=== PATIENT | male | born 1960 | race Caucasian/White ===

== ENCOUNTER 2017-07-23 16:43 | Inpatient (IN) | payer BC ==
[~2017-07-23] VITALS: Ht 177.8 cm; Wt 104.7 kg
[2017-07-23] VITALS (12 sets, daily range): BP systolic 113–152; BP diastolic 85–104; PULSE 90–106; TEMP 36.7; O2SAT 93–96; Ht 177.8 cm; Wt 104.7 kg
[~2017-07-23 16:43] MED LIST: ADVIN25/60 INH; ALBUAER2 INH
[2017-07-23] MEDS ORDERED: SODIUM CHLORIDE 0.9% 1000ML 1,000 ML IV STA (16:48)
[2017-07-23] MEDS ORDERED: NITROGLYCERIN OINT 2% 1GM PACKET EXT ONE (17:00)
[2017-07-23 17:16] LABS: BASO % 0.5 %; BASO ABS # 0.06 K/uL (0-0.2); COMPLETE YES; EOS % 3.5 %; IG% 0.4 %; LYMPH % 25.5 %; LYMPH ABS # 3.38 K/uL (1.2-3.4); MEAN CORPUSCULAR HEMOGLOBIN 29.9 pg (25-34); MEAN CORPUSCULAR HGB CONC 34.4 g/dl (32-36); MEAN PLATELET VOLUME 9.8 fL (7.4-10.4); MONO % 9.7 %; NEUT % 60.4 %; PLATELET COUNT 227 K/uL (130-400); RED BLOOD COUNT 5.52 M/uL (4.7-6.1); WHITE BLOOD COUNT 13.25 K/uL (4.8-10.8)
[2017-07-23 17:22] LABS: INR 1.1 (0.9-1.1); PARTIAL THROMBOPLASTIN RATIO 1.1; PROTHROMBIN TIME (PATIENT) 11.4 SECONDS (9.0-12.0)
[2017-07-23] MEDS ORDERED: PRVHFAIN INH (17:25)
[2017-07-23] MEDS ORDERED: LISI-787 PO (17:25)
[2017-07-23 17:37] LABS: BUN/CREATININE RATIO 13.9 (10-20); CALCIUM 9.8 mg/dl (8.5-10.1); CREATININE 1.57 mg/dl (0.60-1.40)
--- NOTE | 2017-07-23 17:41 | EMERGENCY ROOM VISIT NOTE ---
History Report prepared by Jsoh: Tavia Wen Under the Supervision of: Dr. Hank Franklin D.O. First contact with patient: 16:34 Stated Complaint: CHEST PAIN History of Present Illness The patient is a 56 year old male who presents to the Emergency Room with complaints of constant chest pain for the past two days. About two days ago the patient developed central chest pain and pressure. He was diaphoretic and short of breath, worsening with exertion. His symptoms started to improve over the past 24 hours. This morning he was feeling better but was still tired and SOB with exertion. He also reports some lower abdominal pain. He went to his PCP's office for evaluation of his symptoms today and had an ECG. He was sent to the ED by ambulance for further evaluation. He was given 25 mg of metoprolol at his PCP's office and 324 mg of ASA by EMS. The patient did not receive nitro. He was on 2L of O2 en route. The patient denies any current chest pain. He denies any back pain, urinary symptoms, and constipation. He denies any previous history of abdominal surgeries. He has never had a colonoscopy. He did have a stress test about 1 year ago. Source of History: patient, EMS Onset: 2 days ago Position: chest Timing: constant Modifying Factors (Worsening): exertion Associated Symptoms: + diaphoresis, + SOB, + abdominal pain, + fatigue, No back pain, No urinary symptoms Review of Systems See HPI for pertinent positives & negatives. A total of 10 systems reviewed and were otherwise negative. Past Medical & Surgical Medical Problems: (1) Asthma (2) HTN (hypertension) (3) Hypertension Family History Heart disease Social History Smoking Status: Never Smoker Smokeless Tobacco Use: No Alcohol Use: none Drug Use: none Marital Status: Housing Status: lives with family Occupation Status: employed Current/Historical Medications Scheduled Lisinopril/Hctz (Zestoretic 20MG/12.5MG), 1 TAB PO QAM Scheduled PRN Albuterol (Ventolin Hfa), 2 PUFFS INH UD PRN for Asthma Symptoms Fluticasone Prop/Salmeterol (Advair Diskus 250/50 60 Dose), 1 PUFF INH BID PRN for Asthma Symptoms Allergies Coded Allergies: No Known Allergies (Unverified , 07/23/17) Physical Exam Vital Signs Date Time Temp Pulse Resp B/P (MAP) Pulse Ox O2 Delivery O2 Flow Rate FiO2 07/23/17 18:32 100 18 144/86 (105) 95 Room Air 07/23/17 17:24 104 20 150/115 97 Nasal Cannula 2.0 07/23/17 17:00 106 20 127/93 97 Room Air 07/23/17 16:52 109 07/23/17 16:50 37.0 107 20 178/103 97 Room Air 07/23/17 16:50 97 Room Air Physical Exam GENERAL: Patient is awake, alert, and in no acute distress. Patient is resting comfortably and showing no signs of anxiety EYES: The conjunctivae are clear. The pupils are round and reactive. EARS, NOSE, MOUTH AND THROAT: The nose is without any evidence of any deformity. Mucous membranes are moist tongue is midline NECK: The neck is nontender and supple. RESPIRATORY: Normal respiratory effort is noted there is no evidence of wheezing rhonchi or rales CARDIOVASCULAR: Regular rate and rhythm noted there no murmurs rubs or gallops normal S1 normal S2 GASTROINTESTINAL: The abdomen is mildly distended but soft, no tenderness, guarding, or rigidity. Bowel sounds are present in all quadrants. MUSCULOSKELETAL/EXTREMITIES: There is no evidence of gross deformity full range of motion is noted in the hips and shoulders SKIN: There is no obvious evidence of any rash. There are no petechiae, pallor or cyanosis noted. NEUROLOGIC: Patient is awake alert and oriented x3 Medical Decision & Procedures ER Provider Diagnostic Interpretation: Prehospital ECG per my interpretation shows a sinus tachycardia at 120, no ectopy, ST elevation noted in anterior leads, Q-waves in anterior and inferior leads. Laboratory Results 07/23/17 16:55 Red Blood Count 5.52, Mean Corpuscular Volume 87.0, Mean Corpuscular Hemoglobin 29.9, Mean Corpuscular Hemoglobin Concent 34.4, Mean Platelet Volume 9.8, Neutrophils (%) (Auto) 60.4, Lymphocytes (%) (Auto) 25.5, Monocytes (%) (Auto) 9.7, Eosinophils (%) (Auto) 3.5, Basophils (%) (Auto) 0.5, Neutrophils # (Auto) 8.01, Lymphocytes # (Auto) 3.38, Monocytes # (Auto) 1.28, Eosinophils # (Auto) 0.47, Basophils # (Auto) 0.06 07/23/17 16:55 Test 07/23/17 16:55 07/23/17 17:02 White Blood Count 13.25 K/uL (4.8-10.8) Red Blood Count 5.52 M/uL (4.7-6.1) Hemoglobin 16.5 g/dL (14.0-18.0) Hematocrit 48.0 % (42-52) Mean Corpuscular Volume 87.0 fL (80-100) Mean Corpuscular Hemoglobin 29.9 pg (25-34) Mean Corpuscular Hemoglobin Concent 34.4 g/dl (32-36) Platelet Count 227 K/uL (130-400) Mean Platelet Volume 9.8 fL (7.4-10.4) Neutrophils (%) (Auto) 60.4 % Lymphocytes (%) (Auto) 25.5 % Monocytes (%) (Auto) 9.7 % Eosinophils (%) (Auto) 3.5 % Basophils (%) (Auto) 0.5 % Neutrophils # (Auto) 8.01 K/uL (1.4-6.5) Lymphocytes # (Auto) 3.38 K/uL (1.2-3.4) Monocytes # (Auto) 1.28 K/uL (0.11-0.59) Eosinophils # (Auto) 0.47 K/uL (0-0.5) Basophils # (Auto) 0.06 K/uL (0-0.2) RDW Standard Deviation 43.8 fL (36.4-46.3) RDW Coefficient of Variation 13.7 % (11.5-14.5) Immature Granulocyte % (Auto) 0.4 % Immature Granulocyte # (Auto) 0.05 K/uL (0.00-0.02) Prothrombin Time 11.4 SECONDS (9.0-12.0) Prothromb Time International Ratio 1.1 (0.9-1.1) Activated Partial Thromboplast Time 28.4 SECONDS (21.0-31.0) Partial Thromboplastin Ratio 1.1 Anion Gap 10.0 mmol/L (3-11) Est Creatinine Clear Calc Drug Dose 62.4 ml/min Estimated GFR () 55.5 Estimated GFR (Non- 47.9 BUN/Creatinine Ratio 13.9 (10-20) Calcium Level 9.8 mg/dl (8.5-10.1) Total Bilirubin 1.4 mg/dl (0.2-1) Direct Bilirubin 0.2 mg/dl (0-0.2) Aspartate Amino Transf (AST/SGOT) 47 U/L (15-37) Alanine Aminotransferase (ALT/SGPT) 34 U/L (12-78) Alkaline Phosphatase 91 U/L (45-117) Total Creatine Kinase 240 U/L (39-308) Creatine Kinase MB 7.9 ng/ml (0.5-3.6) Creatine Kinase MB Ratio 3.3 (0-3.0) Troponin I 7.390 ng/ml (0-0.045) Total Protein 7.8 gm/dl (6.4-8.2) Albumin 3.4 gm/dl (3.4-5.0) Lipase 224 U/L (73-393) Bedside Troponin I 8.070 ng/ml (0-0.045) Medications Administered Medications (Trade) Dose Ordered Sig/Vanita Route Start Time Stop Time Status Last Admin Dose Admin Sodium Chloride 1,000 ml @ 999 mls/hr Q1H1M STAT IV 07/23/17 16:48 07/23/17 17:48 DC 07/23/17 16:50 999 MLS/HR Nitroglycerin (Nitroglycerin 2% Oint) 1 inch NOW ONCE EXT 07/23/17 17:00 07/23/17 17:01 DC 07/23/17 16:57 1 INCH Midazolam HCl (Versed Inj) 2 mg STK-MED ONCE .ROUTE 07/23/17 17:43 07/23/17 17:44 DC 07/23/17 17:43 1 MG Fentanyl Citrate (Fentanyl Inj) 100 mcg STK-MED ONCE .ROUTE 07/23/17 17:43 07/23/17 17:44 DC 07/23/17 17:43 50 MCG Heparin Sodium (Porcine) (Heparin Iv Bolus) 10,000 unit STK-MED ONCE .ROUTE 07/23/17 17:43 07/23/17 17:44 DC 07/23/17 17:43 5,000 UNIT ECG Indication: chest pain Rate (beats per minute): 109 Rhythm: sinus tachycardia Findings: Q waves (Anterior and inferior), ST elevation (Anterior), no ectopy Comparison ECG Date: 02/13/2016 Change: Findings are new compared to previous. ED Course 1634: I took medical command prior to the patient's arrival in the department. 1640: I discussed the case with Dr. Mckinley of cardiology prior to the patient's arrival. 1648: NSS 1000 ml @ 999 mls/hr IV 1650: The patient was evaluated in room C8. A complete history and physical examination were performed. 1700: Nitroglycerin 1 inch EXT 1721: I discussed the case with Dr. Mckinley again at this time. He will take the patient to the catheter lab. A code heart alert was called in the ED. 1724: I reassessed the patient at this time. He is resting comfortably. I discussed the results and treatment plan with the patient. I answered all pertaining questions that he had. He expressed understanding and verbalized agreement. 1746: I spoke with Dr. Orozco. We discussed the patients case. [facility]. Medical Decision Differential diagnosis: Etiologies such as cardiac ischemia, aortic dissection, pulmonary embolism, pneumonia, pneumothorax, musculoskeletal, infections, pericarditis, myocarditis , esophageal rupture, gastrointestinal, as well as others were entertained. Nursing notes reviewed. Additional history is obtained from the hospital personnel. The patient is a 56-year-old male who presented to the emergency department for an evaluation of chest discomfort and abnormal EKG. The patient has been having chest discomfort for the last few days. He has no chest discomfort at this time but continues to have some lower abdominal tenderness. His physical exam was not consistent with an acute surgical abdomen. The patient had an abnormal EKG prior to arrival and I received a prehospital medical command call about this patient. He was given aspirin and beta blockers prior to arrival. The patient does not have any chest discomfort but his EKG appear to be consistent with a recent ST segment elevation [place] which is likely in the anterior leads. He was not having pain so I did not make him a heart alert but I did discuss his case with the on-call mining detail draftsperson prior to arrival. When he arrived he still had no pain and his EKG showed some mild improvement. His initial EKG was found to be elevated. For this reason I discussed his case again with the intervention radio antenna installer and he was made a heart alert. The patient had a CT the abdomen and pelvis without contrast to ensure there is no acute abnormality and I did not wish to give him contrast because he would likely need a heart catheterization. The patient was reevaluated multiple times. He was treated with IV fluids and nitroglycerin. He continued to be chest pain-free while in the emergency department. He was taken the cardiac Press Technician. The patient was agreeable this plan. Medication Reconcilliation Current Medication List: was personally reviewed by me Blood Pressure Screening Patient's blood pressure: Elevated blood pressure Consults Time Called: 1640 Consulting Physician: Dr. Mckinley Returned Call: 1640 I discussed the case with Dr. Mckinley of cardiology prior to the patient's arrival. Additional Consults: Time Called: 1718 Consulted Physician: Dr. Mckinley Returned Call: 1721 Additional Comments: I discussed the case with Dr. Mckinley again at this time. He will take the patient to the catheter lab. A code heart alert was called in the ED. Time Called: 1743 Consulted Physician: Dr. Orozco Returned Call: 1746 Additional Comments: I spoke with Dr. Orozco. We discussed the patients case. The patient will be evaluated by the [facility] for further management. Impression Primary Impression: STEMI (ST elevation myocardial infarction) Additional Impressions: Abdominal pain Chest wall pain Critical Care I have personally spent greater than 35 minutes of critical care time in the direct management of this patient. This includes bedside care, interpretation of diagnostic studies, and testing, discussion with consultants, patient, and family members, and other required patient management activities. This 35 minutes is in excess of all separately billable procedures. Scribe Attestation The scribe's documentation has been prepared under my direction and personally reviewed by me in its entirety. I confirm that the note above accurately reflects all work, treatment, procedures, and medical decision making performed by me. Departure Information Dispostion Being Evaluated By Hospitalist Referrals Miah Bush M.D. (PCP) Problem Qualifiers Primary Impression: STEMI (ST elevation myocardial infarction) Involved coronary artery: unspecified coronary artery Qualified Codes: I21.3 - ST elevation (STEMI) myocardial infarction of unspecified site Additional Impressions: Abdominal pain Abdominal location: generalized Qualified Codes: R10.84 - Generalized abdominal pain
[2017-07-23] MEDS ORDERED: HEPARIN SOD (PORCINE) 1000 UNIT/ML 10 ML VIAL ONE (17:43)
[2017-07-23] MEDS ORDERED: MIDAZOLAM HCL 1 MG/ML 2ML VIAL ONE (17:43)
[2017-07-23] MEDS ORDERED: NiCARDipine HCL INJ 2.5 MG/ML 10 ML AMP ONE (17:43)
[2017-07-23] MEDS ORDERED: FENTANYL CITRATE INJ 50 MCG/1 ML 2 ML VIAL ONE (17:43)
[2017-07-23] MEDS ORDERED: NITROGLYCERIN/D5W 100MCG/ML 20ML SYR ONE (17:44)
--- NOTE | 2017-07-23 17:45 | DIAGNOSTIC IMAGING REPORT ---
ABD/PELVIS NO IV OR ORAL CONT CLINICAL HISTORY: 56 years-old Male presenting with pain, lower abdominal discomfort. TECHNIQUE: Multidetector CT of the abdomen and pelvis was performed without the use of intravenous contrast. IV contrast: None. A dose lowering technique was used consistent with the principles of ALARA (as low as reasonably achievable). COMPARISON: None. CT DOSE (mGy.cm): The estimated cumulative dose is 677.97 mGy.cm. FINDINGS: Graduate Assistant Athletic Trainer topogram: Unremarkable. Lung bases: Bronchial wall thickening with peribronchial vascular groundglass opacity and bandlike consolidation at the lung bases. Patchy nodular groundglass opacity also noted at the lung bases. Normal heart size. Trace pericardial effusion. No pleural effusion. Liver: Normal morphology. Normal density. Biliary: No gross biliary ductal dilatation allowing for noncontrast technique. Gallbladder contains gallstones. Pancreas: Normal noncontrast appearance. Spleen: Normal noncontrast appearance. Adrenal glands: Normal noncontrast appearance. Kidneys and ureters: Normal noncontrast appearance. No nephrolithiasis. No hydronephrosis. Normal ureters. Bladder: Normal noncontrast appearance. Pelvic organs: Normal noncontrast appearance. Bowel: Moderate hiatal hernia. Assessment of the bowel is limited given the absence of oral and intravenous contrast. Within this limitation, trace infiltration of the small bowel mesentery with suggestion of mild small bowel wall thickening in a loop of small bowel in the left abdomen (series 3 image 215 as an example). No bowel obstruction. Peritoneal cavity: No free fluid or intraperitoneal gas. Lymph nodes: No gross lymphadenopathy allowing for noncontrast technique. Vasculature: Atherosclerosis of the normal caliber abdominal aorta. Abdominal wall: Small fat-containing umbilical hernia. Musculoskeletal: Normal. IMPRESSION: 1. Findings suggestive of mild small bowel enteritis. Evaluation is overall limited due to the absence of oral and intravenous contrast. 2. Moderate hiatal hernia. 3. Bronchial wall thickening and patchy opacities at the lung bases concerning for either chronic aspiration or infectious bronchiolitis. Electronically signed by: Chato Allan M.D. 07/23/2017 5:44 PM Dictated Date/Time: 07/23/2017 5:34 PM
[2017-07-23 17:46] LABS: CKMB/CK RATIO 3.3 (0-3.0)
--- NOTE | 2017-07-23 18:16 | DIAGNOSTIC IMAGING REPORT ---
CHEST ONE VIEW PORTABLE HISTORY: 56 years-old Male ABDOMINAL PAIN/GI acute generalized abdominal pain COMPARISON: Chest radiograph 02/13/2016, CT abdomen and pelvis 07/23/2017 TECHNIQUE: Portable upright AP view of the chest FINDINGS: Cardiomediastinal and hilar silhouettes are within normal limits. Moderate sized hiatal hernia with partially intrathoracic stomach. No pneumothorax or pleural effusion. No focal airspace consolidation. Minimal subsegmental linear opacities of the lung bases are noted. Bones of the chest are grossly intact. IMPRESSION: 1. Linear subsegmental bibasilar opacities suggest atelectasis. The groundglass densities with bronchial wall thickening of the lung bases seen on comparison chest CT of same day are not well visualized on this study. 2. Moderate hiatal hernia. The above report was generated using voice recognition software. It may contain grammatical, syntax or spelling errors. Electronically signed by: Javier Hall M.D. 07/23/2017 6:15 PM Dictated Date/Time: 07/23/2017 6:13 PM
[2017-07-23] MEDS ORDERED: HEPARIN 25000 UNIT/500 ML D5W ONE (18:32)
[2017-07-23] MEDS ORDERED: ACETAMINOPHEN 325 MG TAB PO PRN (19:00)
[2017-07-23] MEDS ORDERED: ONDANSETRON INJ 2 MG/ML 2 ML VIAL IV PRN (19:00)
--- NOTE | 2017-07-23 19:10 | Procedure Note ---
Pre-Mod Sedation Assessment General Date of Moderate Sedation: Jul 23, 2017. Vital Signs: Vital Signs Past 12 Hours Date Time Temp Pulse Resp B/P (MAP) Pulse Ox O2 Delivery O2 Flow Rate FiO2 07/23/17 18:57 36.7 99 22 139/95 95 Room Air 07/23/17 18:45 36.7 99 22 139/95 (110) 95 Room Air 07/23/17 18:42 100 18 132/86 (101) 95 Room Air 07/23/17 18:32 100 18 144/86 (105) 95 Room Air 07/23/17 17:24 104 20 150/115 97 Nasal Cannula 2.0 07/23/17 17:00 106 20 127/93 97 Room Air 07/23/17 16:52 109 07/23/17 16:50 37.0 107 20 178/103 97 Room Air 07/23/17 16:50 97 Room Air Review Cardiovascular: regular rate, rhythm, no edema Abdomen: normal bowel sounds, non tender Lungs: chest non-tender, lungs clear Airway Class: III Pre-Sedation Airway Assessment Oral Cavity: WNL Able to Visualize Vocal Cords: No Short Thick Neck: No Hx of Sleep Apnea: No Smoking Status: Never Smoker Mallampati Classification: Class III ASA Classification: Class III Procedure Planning Contraindications-for Mod Sed: None Yes Notes The planned sedation has been discussed with the patient and consent obtained. I have identified the patient, determined the appropriateness of sedation and have assessed the patient immediately prior to the procedure. All medicine(s) and interventions are by my order.
[2017-07-23] MEDS ORDERED: ALBUTEROL HFA 8 GM INHALER INH PRN (19:15)
[2017-07-23] MEDS ORDERED: FLUTICASONE/SALMETEROL 250/50 (ADVAIR) 14 PUFF/1 INHALER INH PRN (19:15)
[2017-07-23] MEDS: SODIUM CHLORIDE 0.9% 1000ML 1,000 ML IV SCH (19:30)
[2017-07-23] MEDS: NITROGLYCERIN 0.4 MG SL PER TAB CHARGE SL PRN ×2 (19:51→19:59)
[2017-07-23] MEDS ORDERED: METOPROLOL TARTRATE 1 MG/ML VIAL ONE (19:53)
[2017-07-23] MEDS ORDERED: NURSING VERBAL MED ORDER ONE (20:00)
[2017-07-23] MEDS ORDERED: POTASSIUM CHLORIDE 10 MEQ TABCR PO ONE (20:15)
[2017-07-23 20:56] LABS: MAGNESIUM 1.9 mg/dl (1.8-2.4); THYROID STIMULATING HORMONE 2.32 uIu/ml (0.300-4.500)
[2017-07-23] MEDS ORDERED: METOPROLOL TARTRATE 25 MG TAB PO SCH (21:00)
[2017-07-23] MEDS ORDERED: LEVALBUTEROL 1.25MG/0.5ML NEB INH PRN (21:00)
[2017-07-23] MEDS ORDERED: IPRATROPIUM BROMIDE NEB SOLN 0.02% 2.5 ML VIAL INH PRN (21:00)
[2017-07-23] MEDS ORDERED: LEVALBUTEROL/IPRATROPIUM NEB INH PRN (21:00)
[2017-07-23] MEDS ORDERED: MAGNESIUM SULFATE 1GM / D5W 1 GM in PREMIXED IN D5W 100 ML IV ONE (21:30)
--- NOTE | 2017-07-23 21:46 | History and Physical ---
History & Physical Date & Time of Service: Jul 23, 2017 at 20:49 Chief Complaint: STEMI Primary Care Physician: Miah Bush M.D. History of Present Illness Source: patient, family, hospital records Pt is 56 y/o M with PMH asthma, HTN presented to ER from PCP's office with c/o CP. Pt reports past 2 days with non-radiating central CP with SOB on exertion, diaphoresis and indigestion sensation with increased burping. States this morning symptoms decreased some but having some lower abdominal cramping sensation. Seen at PCP today where EKG done and pt given metoprolol 25, EMS called and pt given 324mg ASA. In ER EKG with ST elevation anterior leads, troponin 7.9 and pt was taken to the quality assurance qa lab analyst by Dr Mckinley, Reported triple vessel disease and plan medical management and consider transfer in the morning. Denies fever/chills, N/V/D/C, YO, dizziness, syncope, vision changes, neck pain, extremity pain, jaw pain, orthopnea, palpitations, cough, sore throat , choking, otalgia, rhinorrhea, paresthesias, weakness, extremity weakness, extremity edema, rashes, urinary symptoms. Pt with hx asthma. Doesn't feel wheezing or cough and doesn't feel like asthma flare. Typically uses albuterol twice a month, in the past month has been using approx twice a week as he states was cleaning and dust seemed to flare asthma a bit. He has Advair to use BID but states has tapered over the past year and now uses approx once a week. Denies hx surgeries. Pt with hx CP 02/2016 seen in ER at that time. 2 negative troponin and negative stress echo at that time. Denies hx previous cardiac cath prior to today. Past Medical/Surgical History Medical Problems: (1) Asthma Status: Chronic (2) HTN (hypertension) Status: Chronic Family History Diabetes mellitus MOTHER GRANDMOTHER FH: cancer GRANDFATHER (unknown) FH: hyperlipidemia GRANDFATHER Heart disease FATHER ([place]AB[place], [place] in 70's) GRANDFATHER ([place] age 62) Hypertension FATHER GRANDFATHER Social History Smoking Status: Never Smoker Smokeless Tobacco Use: No Drug Use: none Marital Status: Occupational Status: employed Allergies Coded Allergies: No Known Allergies (Unverified , 07/23/17) Home Medications Scheduled Lisinopril/Hctz (Zestoretic 20MG/12.5MG), 1 TAB PO QAM Scheduled PRN Albuterol (Ventolin Hfa), 2 PUFFS INH Q4 PRN for SOB/Wheezing Fluticasone Prop/Salmeterol (Advair Diskus 250/50 60 Dose), 1 PUFF INH BID PRN for Asthma Symptoms Review of Systems See HPI for pertinent positives & negatives. All other systems reviewed and were otherwise negative Physical Exam Vital Signs Date Time Temp Pulse Resp B/P (MAP) Pulse Ox O2 Delivery O2 Flow Rate FiO2 07/23/17 19:58 105 152/95 07/23/17 19:15 101 20 148/104 (119) 94 Room Air 07/23/17 19:00 106 19 141/98 (112) 96 Room Air 07/23/17 18:57 36.7 99 22 139/95 95 Room Air 07/23/17 18:45 36.7 99 22 139/95 (110) 95 Room Air 07/23/17 18:42 100 18 132/86 (101) 95 Room Air 07/23/17 18:32 100 18 144/86 (105) 95 Room Air 07/23/17 17:24 104 20 150/115 97 Nasal Cannula 2.0 07/23/17 17:00 106 20 127/93 97 Room Air 07/23/17 16:52 109 07/23/17 16:50 37.0 107 20 178/103 97 Room Air 07/23/17 16:50 97 Room Air General Appearance: WD/WN, no apparent distress Head: normocephalic, atraumatic Eyes: normal inspection ENT: hearing grossly normal, pharynx normal Neck: supple, no JVD, no carotid bruits Respiratory/Chest: chest non-tender, lungs clear, normal breath sounds, no respiratory distress, no accessory muscle use Cardiovascular: regular rate, rhythm (rate 98), no edema, no murmur, normal peripheral pulses Abdomen/GI: normal bowel sounds, soft, + tenderness (epigastric, LLQ, RLQ without rebound or guarding ) Diagnostics Laboratory Results Results Past 24 Hours Test 07/23/17 16:55 07/23/17 17:02 07/23/17 20:20 Range/Units White Blood Count 13.25 4.8-10.8 K/uL Red Blood Count 5.52 4.7-6.1 M/uL Hemoglobin 16.5 14.0-18.0 g/dL Hematocrit 48.0 42-52 % Mean Corpuscular Volume 87.0 80-100 fL Mean Corpuscular Hemoglobin 29.9 25-34 pg Mean Corpuscular Hemoglobin Concent 34.4 32-36 g/dl Platelet Count 227 130-400 K/uL Mean Platelet Volume 9.8 7.4-10.4 fL Neutrophils (%) (Auto) 60.4 % Lymphocytes (%) (Auto) 25.5 % Monocytes (%) (Auto) 9.7 % Eosinophils (%) (Auto) 3.5 % Basophils (%) (Auto) 0.5 % Neutrophils # (Auto) 8.01 1.4-6.5 K/uL Lymphocytes # (Auto) 3.38 1.2-3.4 K/uL Monocytes # (Auto) 1.28 0.11-0.59 K/uL Eosinophils # (Auto) 0.47 0-0.5 K/uL Basophils # (Auto) 0.06 0-0.2 K/uL RDW Standard Deviation 43.8 36.4-46.3 fL RDW Coefficient of Variation 13.7 11.5-14.5 % Immature Granulocyte % (Auto) 0.4 % Immature Granulocyte # (Auto) 0.05 0.00-0.02 K/uL Prothrombin Time 11.4 9.0-12.0 SECONDS Prothromb Time International Ratio 1.1 0.9-1.1 Activated Partial Thromboplast Time 28.4 21.0-31.0 SECONDS Partial Thromboplastin Ratio 1.1 Sodium Level 139 136-145 mmol/L Potassium Level 3.0 3.5-5.1 mmol/L Chloride Level 102 98-107 mmol/L Carbon Dioxide Level 27 21-32 mmol/L Anion Gap 10.0 3-11 mmol/L Blood Urea Nitrogen 22 7-18 mg/dl Creatinine 1.57 0.60-1.40 mg/dl Est Creatinine Clear Calc Drug Dose 62.4 ml/min Estimated GFR () 55.5 Estimated GFR (Non- 47.9 BUN/Creatinine Ratio 13.9 10-20 Random Glucose 110 70-99 mg/dl Calcium Level 9.8 8.5-10.1 mg/dl Total Bilirubin 1.4 0.2-1 mg/dl Direct Bilirubin 0.2 0-0.2 mg/dl Aspartate Amino Transf (AST/SGOT) 47 15-37 U/L Alanine Aminotransferase (ALT/SGPT) 34 12-78 U/L Alkaline Phosphatase 91 45-117 U/L Total Creatine Kinase 240 39-308 U/L Creatine Kinase MB 7.9 0.5-3.6 ng/ml Creatine Kinase MB Ratio 3.3 0-3.0 Troponin I 7.390 0-0.045 ng/ml Total Protein 7.8 6.4-8.2 gm/dl Albumin 3.4 3.4-5.0 gm/dl Lipase 224 73-393 U/L Bedside Troponin I 8.070 0-0.045 ng/ml Diagnostic Radiology CXR: IMPRESSION: 1. Linear subsegmental bibasilar opacities suggest atelectasis. The groundglass densities with bronchial wall thickening of the lung bases seen on comparison chest CT of same day are not well visualized on this study. 2. Moderate hiatal hernia. CT ABD/PELVIS: IMPRESSION: 1. Findings suggestive of mild small bowel enteritis. Evaluation is overall limited due to the absence of oral and intravenous contrast. 2. Moderate hiatal hernia. 3. Bronchial wall thickening and patchy opacities at the lung bases concerning for either chronic aspiration or infectious bronchiolitis. EKG EK:48: Sinus tachy, rate 109, ST elevation noted V1, V2, V3, V4 EK:32: sinus tachy rate 101, ST elevation noted V2, V3, V4 Impression Assessment and Plan STEMI Pt with STEMI. ST elevations anteroseptal on EKG, initial troponin 7.3. Serial troponin 8.5. S/P cardiac cath by Dr Mckinley. Reported multivessel disease and plan medical management tonight with consideration transfer tomorrow. Pt in ICU -Monitor vitals and management per ICU: -repeat EKG in AM -trend cardiac enzymes -pending lipid panel -A1c -ECHO -heparin drip -statin -lopressor -lisinopril -Nitro prn CP and repeat EKG for CP HTN -hold home med lisinopril/hctz -med management by ICU ASTHMA no wheezing on exam. CXR: Linear subsegmental bibasilar opacities suggest atelectasis, Moderate hiatal hernia. -continue advair -xopenex nebs prn HYPOKALEMIA K: 3.0 -K 50meq po -repeat prp in am HYPOMAGNESIA ma.9 -mag sulfate 1g IV -repeat prp in am DVT PROPHYLAXIS -pt on heparin drip DISPOSITION -admit ICU -Full Code as per discussion with pt -Follows with Dr Bush for routine care Pt was seen with Dr Quinones. See addendum Advanced Directives Existing Living Will: No Existing Power of Dining Service Inspector: Yes Resuscitation Status FULL RESUSCITATION VTE Prophylaxis VTE Risk Assessment Done? Y/N: Yes Risk Level: Moderate Additional Copies To Miah Bush M.D. Assessment/Plan IM ATTENDING : Patient seen and examined. History obtained from patient and records. Preceding documentation by Ms. Rosemary Santos PA-C, reviewed. FINAL ASSESSMENT AND PLAN as follows: 1. Acute coronary syndrome. multi-vessel disease on cardiac catheterization. Disease not amenable to percutaneous coronary intervention. Patient needs CABG coronary artery bypass graft as per conversation with director operating. PX currently comfortable. 2. Hypertension, slightly elevated. 3. Asthma, stable. 4. Acute renal failure, hypokalemia secondary to home diuretics. 5. Constipation. ICU monitoring. Management of cardiac issues as per Cardiology. Possible transfer to tertiary center in the morning for CABG. baseline UA, monitor creatinine response to IV fluids. Hold home diuretics for now until creatinine at baseline. Replace potassium. Check mag. Laxative. DVT prophylaxis, Heparin. Full code.
[2017-07-23] MEDS ORDERED: DOCUSATE SODIUM 100 MG CAP PO ONE (21:57)
[2017-07-23] MEDS ORDERED: TRAMADOL HCL 50 MG TAB PO PRN (22:30)
[2017-07-23 22:41] LABS: URINE APPEARANCE CLEAR (CLEAR); URINE BILIRUBIN NEG (NEG); URINE COLOR YELLOW; URINE NITRITE NEG (NEG); URINE PH 5.5 (4.5-7.5); URINE SPECIFIC GRAVITY 1.043 (1.000-1.030); UROBILINOGEN NEG (NEG); ZZUR CULT IF INDIC CLEAN CATCH NO
[2017-07-23 22:42] LABS: MANUAL MICROSCOPIC REQUIRED? NO; REVIEW REQ? NO
[2017-07-23] MEDS ORDERED: HEPARIN 25,000 UNIT/500ML D5W 500 ML IV PRN (22:45)
--- NOTE | 2017-07-23 22:48 | Procedure Note ---
Post-Mod Sedation Assessment General Date of Moderate Sedation Jul 23, 2017. Vital Signs: Vital Signs Past 12 Hours Date Time Temp Pulse Resp B/P (MAP) Pulse Ox O2 Delivery O2 Flow Rate FiO2 07/23/17 20:54 94 17 127/98 (108) 94 Room Air 07/23/17 20:24 96 20 113/87 (96) 93 Room Air 07/23/17 19:58 105 152/95 07/23/17 19:54 101 18 152/95 (114) 96 Room Air 07/23/17 19:39 101 18 140/100 (113) 96 Room Air 07/23/17 19:24 100 18 148/104 (119) 94 Room Air 07/23/17 19:15 101 20 148/104 (119) 94 Room Air 07/23/17 19:09 100 20 141/98 (112) 96 Room Air 07/23/17 19:00 106 19 141/98 (112) 96 Room Air 07/23/17 18:57 36.7 99 22 139/95 95 Room Air 07/23/17 18:45 36.7 99 22 139/95 (110) 95 Room Air 07/23/17 18:42 100 18 132/86 (101) 95 Room Air 07/23/17 18:32 100 18 144/86 (105) 95 Room Air 07/23/17 17:24 104 20 150/115 97 Nasal Cannula 2.0 07/23/17 17:00 106 20 127/93 97 Room Air 07/23/17 16:52 109 07/23/17 16:50 37.0 107 20 178/103 97 Room Air 07/23/17 16:50 97 Room Air Review - Discharge Criteria Vital Signs Stable: Yes Alert/Oriented/Conversant: Yes Returned to Baseline Mental St: Yes Nausea Absent/Minimal: Yes Pain/Discomfort/Absent/Minimal: Yes Normal/Baseline Respirations: Yes Active Bleeding?: No Pt Received D/C Instructions: N/A Prescriptions Given: None Specific Proced. D/C Criteria Distal Pulses Present (Cardiac: Yes Groin site assessed-Card Cath: N/A Voided Prior To Discharge: N/A Discharged Patients Adult Escort/Transportation: Yes
--- NOTE | 2017-07-23 23:05 | HISTORY & PHYSICAL EXAMINATION ---
DATE OF ADMISSION: 07/23/2017 PRIMARY CARE DOCTOR: Dr. Bush. IM ATTENDING : Patient seen and examined. History obtained from patient and records. Preceding documentation by Ms. Rosemary Santos PA-C, reviewed. FINAL ASSESSMENT AND PLAN as follows: 1. Acute coronary syndrome. multi-vessel disease on cardiac catheterization. Disease not amenable to percutaneous coronary intervention. Patient needs CABG coronary artery bypass graft as per conversation with water pump operator. PX currently comfortable. 2. Hypertension, slightly elevated. 3. Asthma, stable. 4. Acute renal failure, hypokalemia secondary to home diuretics. 5. Constipation. ICU monitoring. Management of cardiac issues as per Cardiology. Possible transfer to tertiary center in the morning for CABG. baseline UA, monitor creatinine response to IV fluids. Hold home diuretics for now until creatinine at baseline. Replace potassium. Check mag. Laxative. DVT prophylaxis, Heparin. Full code. MTDD
--- NOTE | 2017-07-23 23:35 | Cardiac Catheterization ---
Procedure Note Procedure Date Jul 23, 2017. Pre-Procedure Diagnosis STEMI AUC Score 8 Post-Procedure Diagnosis Severe CAD, Normal LV Systolic Function, Normal Intracardiac Pressures Procedure(s) Performed Coronary Angiography, Left Heart Cath, LV Angiography Associate Professor Of Automation [employer] Specialist(s) Edwar Estimated Blood Loss 15 Medication(s) Fentanyl, Heparin, Nitroglycerin, Versed, Lidocaine 1% Summary of Findings Indication: Chest pain more than 24 hrs ago. ECG with anterior q-waves and ST elevations. Access: 6Fr slender right radial artery Catheters: [place], Pigtail Findings: LM - Luminal irregularities LAD - Moderate caliber, 70% stenosis early-mid stenosis at take-off of 1st diagonal; Occluded in mid segment right after take-off of 2nd diagonal. Distal LAD fills by left to left and primarily right to left collaterals. - 1st diagonal with 95% ostial stenosis - 2nd diagonal with diffuse proximal disease and 80-90% mid segment stenosis Circumflex - 50% ostial stenosis; 50-60% mid segment stenosis. RCA - Dominant, 95% stenosis is R-PAV branch prior to 3 small to moderate caliber R-PLBs LVEDP - 10 LVEF 55-60%, no wall motion abnormalities. Arterial Closure: TR Band Summary: 1. Late presenting anterior STEMI (>24 hrs) 2. Severe multivessel coronary artery disease - Occluded mid LAD with left to right and right to collaterals - 95% 1st diagonal, 80-90% 2nd diagonal - 50% ostial, 50-60% mid circumflex - 95% Right PAV branch stenosis. 3. Normal intracardiac filling pressure. 4. Preserved LV function. Normal anterior/apical wall motion. Recommendations: -LAD occlusion appeared to be acute on chronic with collaterals. At time of procedure patient hemodynamically and electrically stable with last chest pain more than 24 hrs. Decision made to forgo acute intervention. - Feel best served long-term from CABG. - Will discuss with Cardiac Surgery regarding timing after Acute OR - Admit to ICU - Continue heparin infusion for now - Continue aspirin, CAROLE inhibitor. Start high-intensity statin, beta-chyna -Trend trop until peaks - Echo in AM. Hemodynamics Rest Ao: -- Final Ao: -- LV: -- RA: -- Recommendations CABG Specimens None Radiation Exposure (mGy) -- Contrast (mls) -- Drains None Anesthesia Moderate Procedural Complication(s) None Disposition ICU ACC Data Cardiac Status Clinical evaluation leading to the procedure CAD Presntation: STEMI STEMI or Non-STEMI: Symptom Onset Date/Time: 07/21 Thrombolytics: No Anginal Classification: CCS IV Heart Failure: No, NYHA Class: CCS I Cardiogenic Shock w/in 24Hrs: No Cardiac Arrest w/in 24Hrs: No Imaging studies past 6 months: No Stress studies past 6 months: No Left Ventricular Angiography EF (%): 55-60 Closure Device Percutaneous Entry Location: Radial Closure Device: Radial Band Recommendations: CABG Intraprocedure Events Significant Dissection: No Perforation: No
[2017-07-24] VITALS (18 sets, daily range): BP systolic 110–138; BP diastolic 73–93; PULSE 80–110; TEMP 36.7–36.9; O2SAT 91–95
--- NOTE | 2017-07-24 00:50 | CARDIOLOGY CONSULTATION ---
DATE OF CONSULTATION: 07/23/2017 CONSULTATION REQUESTED BY: Dr. Franklin in the Emergency Department. REASON FOR CONSULTATION: Anterior ST elevations on EKGs. HISTORY OF PRESENT ILLNESS: Mr. Alvarez is a very pleasant 56-year-old man with a history of hypertension, asthma who presented from his primary care's office with new anterior ST elevations and anterior Q-waves on EKG. The patient stated he has been in his usual state of health up until Friday, 2 days ago, when developed substernal chest pain. This was associated with belching, nausea. The pain was nonradiating, not associated with any significant shortness of breath. Pain was intermittent over the next day until went away yesterday afternoon more than 24 hours prior to ED sensation. When initially developed pain 48 hours ago, he made an appointment to see his primary care doctor, which he went to today. There had an EKG which showed Q-waves in V1 through V4 with ST elevations in V2 through V4. EMS was contacted and he was transported to be admitted to the ED. Today, the patient denies any chest pain. He reports some mild nausea and abdominal discomfort but no chest pain since yesterday afternoon. His point of care troponin up on arrival was positive at 8 and decision was made to undergo cardiac catheterization for further definition of coronary anatomy. Coronary angiography undertaken via right radial artery. He was found to have severe multivessel disease with an occluded mid LAD. He had severe disease in his first and second diagonal also had moderate to severe disease in his ostial circumflex and mid circumflex. There was also a 95% stenosis in his right posterior AV branch. LV angiogram showed preserved LV function with preserved anterior wall motion and normal filling pressures. The patient remained chest pain free during the procedure and he was transferred to the ICU following catheterization. PAST MEDICAL HISTORY: 1. Hypertension. 2. Asthma. 3. No prior cardiac history. Of note, did have a stress test completed in February of 2016, which was negative for significant ischemia. FAMILY HISTORY: Father had an ND in his 70s. Grandfather had an ND in his 60s. SOCIAL HISTORY: Lifelong nonsmoker. He is and currently working, previously served in the [employer]. ALLERGIES: No known drug allergies. HOME MEDICATIONS: Include lisinopril/hydrochlorothiazide 20/12.5 1 tab q.a.m., p.r.n. albuterol and Advair Diskus. REVIEW OF SYSTEMS: A 10-point review of systems completed and otherwise negative unless noted in the HPI. PHYSICAL EXAMINATION: VITAL SIGNS: Postprocedure temperature 36.7, pulse 90, blood pressure 139/95. He is satting 98% on room air. GENERAL: Comfortable in no acute distress. HEENT: Sclerae are anicteric. Oropharynx is clear. Mucous membranes are moist. NECK: Supple with no lymphadenopathy. LUNGS: Clear to auscultation bilaterally. HEART: Regular rate and rhythm with no appreciable murmurs, rubs or gallops. ABDOMEN: Soft, nondistended with positive bowel sounds. He had mild tenderness in his lower quadrants bilaterally. EXTREMITIES: Warm and well perfused. He had 2+ pulses throughout. SKIN: Shows no rashes or lesions. NEUROLOGIC: Nonfocal. PSYCHIATRIC: Alert, oriented and appropriate. LABORATORY DATA: Sodium 130, potassium 3.0, BUN 22, creatinine 1.57. T-bili mildly elevated at 1.4, AST mildly elevated at 47. Initial CK-MB elevated at 7.9. Initial troponin at 7.39. Albumin within normal limits. White blood cell count 13.3, hemoglobin 16.5, platelets of 227. INR 1.1. IMAGING: Chest x-ray showed subsegmental bibasilar opacities suggestive of atelectasis, moderate hiatal hernia and otherwise no acute cardiopulmonary process. CT scan of abdomen and pelvis showed findings suggestive of small bowel enteritis, moderate hiatal hernia, bronchial wall thickening and patchy opacities of the lung bases concerning for either chronic aspiration or infectious bronchitis. Presenting EKG sinus rhythm with ventricular rate of 109, deep Q-waves in leads V1, V2 and V3 with anterior elevation in V1 through V4. IMPRESSION AND PLAN: 1. Late presenting anterior ST segment myocardial infarction. 2. Severe multivessel coronary artery disease with occluded mid left anterior descending. 3. Hypertension. 4. Acute renal insufficiency. 5. Possible enteritis 6. History of asthma. 7. Hypokalemia. Mr. Alvarez presented to the ED more than 24 hours out from his last chest pain with presenting EKG showing new anterior Q-waves and ST elevations. Cardiac catheterization revealed multivessel coronary artery disease including occluded mid segment LAD but also with severe disease of the first and second diagonal distal RCA and moderate to severe disease in the circumflex. I feel long-term that he will be best served with bypass surgery versus PCI. At present, as the patient is hemodynamically and electrically stable with no significant chest pain, no indication for emergent intervention. We will plan to admit to ICU for additional monitoring. For now, we will continue on heparin infusion, continue aspirin and continue prior CAROLE inhibitor. We will start on a beta chyna and high intensity statin. We will trend troponins until peak and plan to check an echocardiogram in the morning. We will discuss the patient's case further with cardiac surgery likely at [facility] tomorrow morning. Timing of possible bypass after recent STEMI will be discussed. If in the interim has recurrent chest pain, please recontact interventional cardiology. Thank you for consultation, please contact with any questions.
[2017-07-24] MEDS ORDERED: METOPROLOL TARTRATE 25 MG TAB PO ONE (01:08)
[2017-07-24] MEDS: ALUMINUM/MAGNESIUM/SIMETH (MAALOX MAX) 30 ML UDC PO PRN ×2 (01:37→09:42)
[2017-07-24] MEDS: SODIUM CHLORIDE 0.9% 1000ML 1,000 ML IV SCH ×2 (03:17→11:26)
[2017-07-24] MEDS ORDERED: HYDROmorphone INJ 0.5 MG/0.5 ML SYR IV PRN (05:30)
[2017-07-24 05:40] LABS: BASO % 0.3 %; BASO ABS # 0.03 K/uL (0-0.2); COMPLETE YES; EOS % 3.3 %; HEMATOCRIT 41.4 % (42-52); IG% 0.2 %; LYMPH % 21.7 %; MEAN CELL VOLUME 86.8 fL (80-100); MEAN CORPUSCULAR HEMOGLOBIN 29.8 pg (25-34); MEAN CORPUSCULAR HGB CONC 34.3 g/dl (32-36); MEAN PLATELET VOLUME 9.6 fL (7.4-10.4); MONO % 12.5 %; PLATELET COUNT 206 K/uL (130-400); RED BLOOD COUNT 4.77 M/uL (4.7-6.1); WHITE BLOOD COUNT 11.05 K/uL (4.8-10.8)
[2017-07-24 06:43] LABS: BUN/CREATININE RATIO 17.8 (10-20); CALCIUM 8.5 mg/dl (8.5-10.1); CHOLESTEROL/HDL RATIO 3.1; CREATININE 1.13 mg/dl (0.60-1.40); POTASSIUM 3.8 mmol/L (3.5-5.1)
[2017-07-24 08:34] LABS: ESTIMATED AVERAGE GLUCOSE 117 mg/dl; HA1C FLAG Normal (Normal)
[2017-07-24] MEDS ORDERED: ATORVASTATIN 40 MG TAB PO SCH (09:00)
[2017-07-24] MEDS ORDERED: LISINOPRIL 5 MG TAB PO SCH (09:00)
[2017-07-24] MEDS ORDERED: ASPIRIN 81 MG ECTAB PO SCH (09:00)
[2017-07-24] MEDS ORDERED: DOCUSATE SODIUM 100 MG CAP PO SCH (09:00)
--- NOTE | 2017-07-24 09:08 | Cardiology Follow-Up ---
Subjective Subjective Date of Service: Jul 24, 2017. Pt evaluation today including: conversation w/ patient, conversation w/ family , physical exam, chart review, lab review, review of studies, review of inpatient medication list Additional Details: Brief episodes of "indigestion" overnight, relieved with antacid. Tachy to 110s overnight --> received extra 37.5 mg metoprolol. Abdominal pain/nausea improved. No significant events on telemetry. Echo completed this AM and reviewed -- EF 55%, anteroseptal, apical septal hypokinesis. No valvular pathology. Problem List Medical Problems: (1) Chest pain Status: Acute (2) Hypertension Status: Chronic (3) STEMI (ST elevation myocardial infarction) Status: Acute Review of Systems Constitutional: No fever, No chills Respiratory: No cough, No sputum Cardiac: + see HPI Abdomen: + see HPI Male : No dysuria Heme: No abnormal bleeding/bruising Skin: No rash Objective Vital Signs Last Vital Signs Documentation Date Time Temp Pulse Resp B/P (MAP) Pulse Ox O2 Delivery O2 Flow Rate FiO2 07/24/17 06:00 89 14 115/79 (91) 92 Room Air 07/24/17 00:00 36.7 07/23/17 17:24 2.0 Physical Exam: General Appearance: no apparent distress Neck: supple Respiratory/Chest: chest non-tender, lungs clear Cardiovascular: no edema, no JVD, + tachycardia (regular) Abdomen: non tender, soft Extremities: no pedal edema, no calf tenderness, + pertinent finding (right radial artery - no ecchymosis, hematoma. Intact distal pulses, sensation) Neurologic/Psychiatric: alert, normal mood/affect, oriented x 3 Skin: warm/dry Assessment and Plan 1. Late presenting anterior STEMI 2. Multivessel CAD with occluded LAD which fills in part by collaterals 3. Hypertension 4. TEJAS -- Hemodynamically and electrically stable overnight. Mild intermittent chest pain, now pain free. -- Troponin peaked. Echo showed preserved LV function small wall motion abnormality involving anteroseptal/apical septal cruz. Discussed management options with patient and feel best served childcare provider with CABG [facility] In interim continue current heparin infusion, ASA, statin and CAROLE inhibitor. Increase metoprolol to 50mg BID. Medications: Current Inpatient Medications Medications (Trade) Dose Ordered Sig/Vanita Route Start Time Stop Time Status Last Admin Dose Admin Nitroglycerin (Nitrostat Tab) 0.4 mg UD PRN SL 07/23/17 19:00 08/22/17 18:59 07/23/17 19:59 0.4 MG Sodium Chloride 1,000 ml @ 125 mls/hr Q8H IV 07/23/17 19:30 08/22/17 19:29 07/24/17 03:17 125 MLS/HR Ondansetron HCl (Zofran Inj) 4 mg Q6H PRN IV 07/23/17 19:00 08/22/17 18:59 Aspirin (Ecotrin Tab) 81 mg QAM PO 07/24/17 09:00 08/23/17 08:59 07/24/17 07:47 81 MG Atorvastatin Calcium (Lipitor Tab) 80 mg QAM PO 07/24/17 09:00 08/23/17 08:59 07/24/17 07:47 80 MG Lisinopril (Zestril Tab) 5 mg QAM PO 07/24/17 09:00 08/23/17 08:59 07/24/17 07:47 5 MG Acetaminophen (Tylenol Tab) 650 mg Q4H PRN PO 07/23/17 19:00 08/22/17 18:59 Salmeterol Xinafoate/ Fluticasone (Advair Diskus 250/50 Inh) 1 puff BID PRN INH 07/23/17 19:15 08/22/17 19:14 Al Hydrox/Mg Hydrox/Simethicone (Maalox Max Susp) 30 ml Q6H PRN PO 07/23/17 20:15 08/22/17 20:14 07/24/17 01:37 30 ML Ipratropium [place] (Atrovent 0.02% 0.5MG/2.5ML Neb) 0.5 mg Q4H PRN INH 07/23/17 21:00 08/22/17 20:59 Levalbuterol (Xopenex 1.25MG/ 0.5ML Neb) 1.25 mg Q4H PRN INH 07/23/17 21:00 08/22/17 20:59 Docusate Sodium (coLACE CAP) 100 mg DAILY PO 07/24/17 09:00 08/23/17 08:59 07/24/17 07:46 100 MG Tramadol HCl (Ultram Tab) not relieved by tylenol @ Q6H PRN PO 07/23/17 22:30 08/22/17 22:29 07/24/17 01:37 50 MG Heparin Sodium/ Dextrose 500 ml @ 31 mls/hr Q16H8M PRN IV 07/23/17 22:45 08/22/17 22:44 Metoprolol Tartrate (Lopressor Tab) 37.5 mg BID PO 07/24/17 21:00 08/22/17 20:59 Hydromorphone HCl (Dilaudid Inj) 0.5 mg Q3H PRN IV 07/24/17 05:30 08/07/17 05:29 Lab Results: 07/24/17 05:24 Red Blood Count 4.77, Mean Corpuscular Volume 86.8, Mean Corpuscular Hemoglobin 29.8, Mean Corpuscular Hemoglobin Concent 34.3, Mean Platelet Volume 9.6, Neutrophils (%) (Auto) 62.0, Lymphocytes (%) (Auto) 21.7, Monocytes (%) (Auto) 12.5, Eosinophils (%) (Auto) 3.3, Basophils (%) (Auto) 0.3, Neutrophils # (Auto ) 6.85, Lymphocytes # (Auto) 2.40, Monocytes # (Auto) 1.38, Eosinophils # (Auto ) 0.37, Basophils # (Auto) 0.03 07/24/17 05:24 Test 07/23/17 16:55 07/23/17 17:02 07/23/17 20:20 07/23/17 21:47 Prothrombin Time 11.4 SECONDS (9.0-12.0) Prothromb Time International Ratio 1.1 (0.9-1.1) Total Bilirubin 1.4 mg/dl (0.2-1) Direct Bilirubin 0.2 mg/dl (0-0.2) Aspartate Amino Transf (AST/SGOT) 47 U/L (15-37) Alanine Aminotransferase (ALT/SGPT) 34 U/L (12-78) Alkaline Phosphatase 91 U/L (45-117) Total Creatine Kinase 240 U/L (39-308) Creatine Kinase MB 7.9 ng/ml (0.5-3.6) Creatine Kinase MB Ratio 3.3 (0-3.0) Total Protein 7.8 gm/dl (6.4-8.2) Albumin 3.4 gm/dl (3.4-5.0) Lipase 224 U/L (73-393) Bedside Troponin I 8.070 ng/ml (0-0.045) Magnesium Level 1.9 mg/dl (1.8-2.4) Thyroid Stimulating Hormone (TSH) 2.320 uIu/ml (0.300-4.500) Bedside Glucose 102 mg/dl (70-99) Test 07/23/17 22:15 07/24/17 05:24 Urine Color YELLOW Urine Appearance CLEAR (CLEAR) Urine pH 5.5 (4.5-7.5) Urine Specific [place] 1.043 (1.000-1.030) Urine Protein NEG (NEG) Urine Glucose (UA) NEG (NEG) Urine Ketones NEG (NEG) Urine Occult Blood NEG (NEG) Urine Nitrite NEG (NEG) Urine Bilirubin NEG (NEG) Urine Urobilinogen NEG (NEG) Urine Leukocyte Esterase NEG (NEG) White Blood Count 11.05 K/uL (4.8-10.8) Red Blood Count 4.77 M/uL (4.7-6.1) Hemoglobin 14.2 g/dL (14.0-18.0) Hematocrit 41.4 % (42-52) Mean Corpuscular Volume 86.8 fL (80-100) Mean Corpuscular Hemoglobin 29.8 pg (25-34) Mean Corpuscular Hemoglobin Concent 34.3 g/dl (32-36) Platelet Count 206 K/uL (130-400) Mean Platelet Volume 9.6 fL (7.4-10.4) Neutrophils (%) (Auto) 62.0 % Lymphocytes (%) (Auto) 21.7 % Monocytes (%) (Auto) 12.5 % Eosinophils (%) (Auto) 3.3 % Basophils (%) (Auto) 0.3 % Neutrophils # (Auto) 6.85 K/uL (1.4-6.5) Lymphocytes # (Auto) 2.40 K/uL (1.2-3.4) Monocytes # (Auto) 1.38 K/uL (0.11-0.59) Eosinophils # (Auto) 0.37 K/uL (0-0.5) Basophils # (Auto) 0.03 K/uL (0-0.2) RDW Standard Deviation 44.1 fL (36.4-46.3) RDW Coefficient of Variation 13.9 % (11.5-14.5) Immature Granulocyte % (Auto) 0.2 % Immature Granulocyte # (Auto) 0.02 K/uL (0.00-0.02) Activated Partial Thromboplast Time 52.3 SECONDS (21.0-31.0) Partial Thromboplastin Ratio 2.0 Anion Gap 7.0 mmol/L (3-11) Est Creatinine Clear Calc Drug Dose 86.4 ml/min Estimated GFR () 82.6 Estimated GFR (Non- 71.3 BUN/Creatinine Ratio 17.8 (10-20) Calcium Level 8.5 mg/dl (8.5-10.1) Troponin I 7.070 ng/ml (0-0.045) Triglycerides Level 142 mg/dl (0-150) Cholesterol Level 168 mg/dl (0-200) HDL Cholesterol 54 mg/dl LDL Cholesterol, Calculated 86 mg/dl VLDL Cholesterol, Calculated 28 mg/dl Cholesterol/HDL Ratio 3.1 Date/Time Source Procedure Growth Status 07/23/17 19:15 Nasal MRSA DNA Surveillance Screen - Final Specimen Negative for MRSA by DNA Probe Complete
[2017-07-24] MEDS ORDERED: METOPROLOL TARTRATE 25 MG TAB PO SCH ×2 (09:30→21:00)
--- NOTE | 2017-07-24 12:26 | Progress Note ---
Progress Note Date of Service Jul 24, 2017. Progress Note ATTENDING NOTE : D/w Dr Mckinley , pt will be transferred to [facility] today for CABG accepting Assisted Living Associate Dr Phillips pt will be transferred via ground will need IV heparin infusion en route all cardiac meds will be continued
[2017-07-24] MEDS ORDERED: NTRSLP4 SL (12:28)
[2017-07-24] MEDS ORDERED: LPR25 PO (12:28)
[2017-07-24] MEDS ORDERED: ASPEC81 PO (12:28)
[2017-07-24] MEDS ORDERED: LPT40 PO (12:28)
[2017-07-24] MEDS ORDERED: LSN5 PO (12:28)
--- NOTE | 2017-07-24 12:30 | Discharge Instructions ---
Discharge Instructions Date of Service Jul 24, 2017. Admission Reason for Admission: STEMI Discharge Discharge Diagnosis / Problem: STEMI /DIFFUSE THREE VESSEL CORONARY ARTERY DISEASE / Discharge Goals Goal(s): Decrease discomfort, Improve function, Increase independence, Improve disease control, Diagnostic testing Activity Recommendations Activity Limitations: as noted below ( TOLERATED ) . Instructions / Follow-Up Instructions / Follow-Up TRANSFER TO [facility] FOR CORONARY ARTERY BYPASS SURGERY ACCEPTING CARDIO THORACIC SURGEON DR CROOK Lifestyle Changes: * Maintain a healthy weight. Get help to lose any extra pounds. * Cut back on salt. * Limit canned, dried, packaged, and fast foods. * Don't add salt to your food. * Season foods with herbs instead of salt when you cook. * Break the smoking habit. Enroll in a stop-smoking program to improve your chances of success. * Limit fatty foods. * Ask your doctor about having your lipid levels checked regularly. * Build up your activity according to your doctor's recommendation. * Ask your doctor when it's okay to resume sexual activity. * Tell your doctor about any erectile dysfunction (ED) medication you are taking. Some ED medications are not safe if you take certain heart medications. * Try to manage stress. Follow Up: It is important for you to keep your follow up appointments with your medical provider. Current Hospital Diet Patient's current hospital diet: AHA Diet (Heart Healthy) Discharge Diet Recommended Diet: AHA Diet (Heart Healthy) Pending Studies Studies pending at discharge: no Laboratory Results Hemoglobin A1c Test 07/24/17 05:24 Range/Units Estimated Average Glucose 117 mg/dl Hemoglobin A1c 5.7 H 4.5-5.6 % Lipid Panel Test 07/24/17 05:24 Range/Units Triglycerides Level 142 0-150 mg/dl Cholesterol Level 168 0-200 mg/dl HDL Cholesterol 54 mg/dl Cholesterol/HDL Ratio 3.1 LDL Cholesterol, Calculated 86 mg/dl Medical Emergencies . Who to Call and When: Medical Emergencies: If at any time you feel your situation is an emergency, please call 911 immediately. Call 911 immediately or go to your nearest Emergency Room if you experience any of the following: Warning Signs and Symptoms of a Heart Attack * Chest pain that is not relieved by medication * Shortness of breath . Non-Emergent Contact Non-Emergency issues call your: Primary Care Provider . . "Provider Documentation" section prepared by Pham Albert. . AMI Core Measures Reason no ASA as I/P: Treatment provided - N/A Reason no ASA at D/C: Treatment provided - N/A Reason no statin as I/P: Treatment provided - N/A Reason no statin at D/C: Treatment provided - N/A VTE Core Measure Inpt VTE Proph given/why not?: Other Anticoagulation (IV HEPARIN )
--- NOTE | 2017-07-24 15:33 | Progress Note ---
Internal Med Progress Note Date of Service: Jul 24, 2017. Provider Documentation: SUBJECTIVE: no complain of chest pain or chest heaviness no SOB or orthopnea no dizzy spell or palpitation OBJECTIVE: Vital Signs-as noted below Exam: General-well appearing male, no sign of distress , conversing Eyes-sclera non icteric , PERRLA/EOMI ENT-normal exam Neck-trachea midline , no thyromegaly Lungs-clear to auscultate , no wheeze or rales Heart-regular S1/S2 , no JVD , no lower ext edema Abdomen-soft, non tender, normal bowel sound Extremities-no rash or deformity Neuro-AAo x3, no focal neurological deficit Lab data as noted below. ASSESSMENT & PLAN: STEMI presented with chest pain /heart burn symptom for past 2 days presented with STEMI EKG showed ST . ST elevations anteroseptal on EKG, initial troponin 7.3. Serial troponin 8.5. Code heart alert was called pt was taken emergently to cardiac aquatic life laborer by Dr Mckinley found to have diffuse multi vessel coronary artery disease with occluded LAD , incomplete collateral supply -ECHO: EF 55%, anteroseptal, apical septal hypokinesis. No valvular pathology. appreciate input form Cardiology pt will be transferred to [facility] DR Mckinley spoke with CT surgery at [facility] pt is accepted by Dr Kristopher Phillips will be transferred to [facility] today pt will continue on IV heparin gtt cont Beta chyna Lopressor 50 mg BID , statin , ACEI , Aspirin HTN on Lopressor /ACEI ASTHMA no exacerbation -continue Advair -Xopenex nebs prn DVT PROPHYLAXIS IV heparin DISPOSITION transfer to [facility] today for CABG Vital Signs: Date Time Temp Pulse Resp B/P (MAP) Pulse Ox O2 Delivery O2 Flow Rate FiO2 07/24/17 12:00 36.9 85 19 118/73 (88) 93 Room Air 07/24/17 11:30 Room Air 07/24/17 11:00 85 6 114/76 (89) 92 07/24/17 10:00 92 14 112/83 (93) 91 07/24/17 09:00 102 17 110/74 (86) 93 07/24/17 08:00 36.9 96 16 129/81 (97) 93 Room Air 07/24/17 07:44 99 22 137/84 (101) 95 07/24/17 07:40 Room Air 07/24/17 07:00 89 13 110/75 (87) 91 07/24/17 06:00 89 14 115/79 (91) 92 Room Air 07/24/17 04:00 Room Air 07/24/17 04:00 91 17 126/80 (95) 93 Room Air 07/24/17 02:00 99 14 129/86 (100) 95 Room Air 07/24/17 01:00 110 20 138/85 (102) 93 Room Air 07/24/17 00:00 36.7 100 16 121/93 (102) 94 Room Air 07/23/17 23:59 Room Air 07/23/17 23:00 98 20 140/89 (106) 94 Room Air 07/23/17 22:00 90 12 113/85 (94) 96 Room Air 07/23/17 20:54 94 17 127/98 (108) 94 Room Air 07/23/17 20:24 96 20 113/87 (96) 93 Room Air 07/23/17 20:00 Room Air 07/23/17 19:58 105 152/95 07/23/17 19:54 101 18 152/95 (114) 96 Room Air 07/23/17 19:39 101 18 140/100 (113) 96 Room Air 07/23/17 19:24 100 18 148/104 (119) 94 Room Air 07/23/17 19:15 101 20 148/104 (119) 94 Room Air 07/23/17 19:09 100 20 141/98 (112) 96 Room Air 07/23/17 19:00 106 19 141/98 (112) 96 Room Air 07/23/17 18:57 36.7 99 22 139/95 95 Room Air 07/23/17 18:45 36.7 99 22 139/95 (110) 95 Room Air 07/23/17 18:42 100 18 132/86 (101) 95 Room Air 07/23/17 18:32 100 18 144/86 (105) 95 Room Air 07/23/17 17:24 104 20 150/115 97 Nasal Cannula 2.0 07/23/17 17:00 106 20 127/93 97 Room Air 07/23/17 16:52 109 07/23/17 16:50 37.0 107 20 178/103 97 Room Air 07/23/17 16:50 97 Room Air Lab Results: Results Past 24 Hours Test 07/23/17 16:55 07/23/17 17:02 07/23/17 20:20 07/23/17 21:47 Range/Units White Blood Count 13.25 4.8-10.8 K/uL Red Blood Count 5.52 4.7-6.1 M/uL Hemoglobin 16.5 14.0-18.0 g/dL Hematocrit 48.0 42-52 % Mean Corpuscular Volume 87.0 80-100 fL Mean Corpuscular Hemoglobin 29.9 25-34 pg Mean Corpuscular Hemoglobin Concent 34.4 32-36 g/dl Platelet Count 227 130-400 K/uL Mean Platelet Volume 9.8 7.4-10.4 fL Neutrophils (%) (Auto) 60.4 % Lymphocytes (%) (Auto) 25.5 % Monocytes (%) (Auto) 9.7 % Eosinophils (%) (Auto) 3.5 % Basophils (%) (Auto) 0.5 % Neutrophils # (Auto) 8.01 1.4-6.5 K/uL Lymphocytes # (Auto) 3.38 1.2-3.4 K/uL Monocytes # (Auto) 1.28 0.11-0.59 K/uL Eosinophils # (Auto) 0.47 0-0.5 K/uL Basophils # (Auto) 0.06 0-0.2 K/uL RDW Standard Deviation 43.8 36.4-46.3 fL RDW Coefficient of Variation 13.7 11.5-14.5 % Immature Granulocyte % (Auto) 0.4 % Immature Granulocyte # (Auto) 0.05 0.00-0.02 K/uL Prothrombin Time 11.4 9.0-12.0 SECONDS Prothromb Time International Ratio 1.1 0.9-1.1 Activated Partial Thromboplast Time 28.4 21.0-31.0 SECONDS Partial Thromboplastin Ratio 1.1 Sodium Level 139 136-145 mmol/L Potassium Level 3.0 3.5-5.1 mmol/L Chloride Level 102 98-107 mmol/L Carbon Dioxide Level 27 21-32 mmol/L Anion Gap 10.0 3-11 mmol/L Blood Urea Nitrogen 22 7-18 mg/dl Creatinine 1.57 0.60-1.40 mg/dl Est Creatinine Clear Calc Drug Dose 62.4 ml/min Estimated GFR () 55.5 Estimated GFR (Non- 47.9 BUN/Creatinine Ratio 13.9 10-20 Random Glucose 110 70-99 mg/dl Calcium Level 9.8 8.5-10.1 mg/dl Total Bilirubin 1.4 0.2-1 mg/dl Direct Bilirubin 0.2 0-0.2 mg/dl Aspartate Amino Transf (AST/SGOT) 47 15-37 U/L Alanine Aminotransferase (ALT/SGPT) 34 12-78 U/L Alkaline Phosphatase 91 45-117 U/L Total Creatine Kinase 240 39-308 U/L Creatine Kinase MB 7.9 0.5-3.6 ng/ml Creatine Kinase MB Ratio 3.3 0-3.0 Troponin I 7.390 8.520 0-0.045 ng/ml Total Protein 7.8 6.4-8.2 gm/dl Albumin 3.4 3.4-5.0 gm/dl Lipase 224 73-393 U/L Bedside Troponin I 8.070 0-0.045 ng/ml Magnesium Level 1.9 1.8-2.4 mg/dl Thyroid Stimulating Hormone (TSH) 2.320 0.300-4.500 uIu/ml Bedside Glucose 102 70-99 mg/dl Test 07/23/17 22:15 07/24/17 00:30 07/24/17 05:24 07/24/17 13:54 Range/Units Urine Color YELLOW Urine Appearance CLEAR CLEAR Urine pH 5.5 4.5-7.5 Urine Specific [place] 1.043 1.000-1.030 Urine Protein NEG NEG Urine Glucose (UA) NEG NEG Urine Ketones NEG NEG Urine Occult Blood NEG NEG Urine Nitrite NEG NEG Urine Bilirubin NEG NEG Urine Urobilinogen NEG NEG Urine Leukocyte Esterase NEG NEG Activated Partial Thromboplast Time 52.3 52.3 21.0-31.0 SECONDS Partial Thromboplastin Ratio 2.0 2.0 White Blood Count 11.05 4.8-10.8 K/uL Red Blood Count 4.77 4.7-6.1 M/uL Hemoglobin 14.2 14.0-18.0 g/dL Hematocrit 41.4 42-52 % Mean Corpuscular Volume 86.8 80-100 fL Mean Corpuscular Hemoglobin 29.8 25-34 pg Mean Corpuscular Hemoglobin Concent 34.3 32-36 g/dl Platelet Count 206 130-400 K/uL Mean Platelet Volume 9.6 7.4-10.4 fL Neutrophils (%) (Auto) 62.0 % Lymphocytes (%) (Auto) 21.7 % Monocytes (%) (Auto) 12.5 % Eosinophils (%) (Auto) 3.3 % Basophils (%) (Auto) 0.3 % Neutrophils # (Auto) 6.85 1.4-6.5 K/uL Lymphocytes # (Auto) 2.40 1.2-3.4 K/uL Monocytes # (Auto) 1.38 0.11-0.59 K/uL Eosinophils # (Auto) 0.37 0-0.5 K/uL Basophils # (Auto) 0.03 0-0.2 K/uL RDW Standard Deviation 44.1 36.4-46.3 fL RDW Coefficient of Variation 13.9 11.5-14.5 % Immature Granulocyte % (Auto) 0.2 % Immature Granulocyte # (Auto) 0.02 0.00-0.02 K/uL Sodium Level 137 136-145 mmol/L Potassium Level 3.8 3.5-5.1 mmol/L Chloride Level 103 98-107 mmol/L Carbon Dioxide Level 27 21-32 mmol/L Anion Gap 7.0 3-11 mmol/L Blood Urea Nitrogen 20 7-18 mg/dl Creatinine 1.13 0.60-1.40 mg/dl Est Creatinine Clear Calc Drug Dose 86.4 ml/min Estimated GFR () 82.6 Estimated GFR (Non- 71.3 BUN/Creatinine Ratio 17.8 10-20 Random Glucose 100 70-99 mg/dl Estimated Average Glucose 117 mg/dl Hemoglobin A1c 5.7 4.5-5.6 % Calcium Level 8.5 8.5-10.1 mg/dl Troponin I 7.070 6.200 0-0.045 ng/ml Triglycerides Level 142 0-150 mg/dl Cholesterol Level 168 0-200 mg/dl HDL Cholesterol 54 mg/dl LDL Cholesterol, Calculated 86 mg/dl VLDL Cholesterol, Calculated 28 mg/dl Cholesterol/HDL Ratio 3.1 Microbiology Results 07/23/17 MRSA DNA Surveillance Screen - Final, Complete Specimen Negative for MRSA by DNA Probe
--- NOTE | 2017-07-24 15:39 | Discharge Summary ---
Discharge Summary Date of Service Jul 24, 2017. Discharge Summary Admission Date: Jul 23, 2017 at 19:09 Discharge Date: Jul 24, 2017 Discharge Disposition: Acute care facility ([facility] ) Principal Diagnosis: STEMI /DIFFUSE THREE VESSEL CORONARY ARTERY DISEASE / Procedures: CARDIAC CATH Consultations: CARDIOLOGY DR EDISON JORDAN Medication Reconciliation New Medications: Aspirin (Aspirin EC Low Dose) 81 Mg Ectab 81 MG PO QAM for 30 Days, #30 Atorvastatin (Atorvastatin Calcium) 40 Mg Tab 80 MG PO QAM for 30 Days, #60 TAB Lisinopril (Lisinopril) 5 Mg Tab 5 MG PO QAM for 30 Days, #30 TAB Metoprolol Tartrate (Lopressor) 25 Mg Tab 50 MG PO BID for 30 Days, #120 TAB Nitroglycerin (Nitrostat) 0.4 Mg/1 Tab Subl 0.4 MG SL UD PRN for Chest Pain, #30 Continued Medications: Albuterol (Ventolin Hfa) 60 Puffs/5400 Mcg Aers 2 PUFFS INH Q4 PRN for SOB/Wheezing Fluticasone Prop/Salmeterol (Advair Diskus 250/50 60 Dose) 1 Ea Aerp 1 PUFF INH BID PRN for Asthma Symptoms, INHALER Discontinued Medications: Lisinopril/Hctz (Zestoretic 20MG/12.5MG) Tab 1 TAB PO QAM, TAB Admission Information HPI (per Admitting provider): Pt is 56 y/o M with PMH asthma, HTN presented to ER from PCP's office with c/o CP. Pt reports past 2 days with non-radiating central CP with SOB on exertion, diaphoresis and indigestion sensation with increased burping. States this morning symptoms decreased some but having some lower abdominal cramping sensation. Seen at PCP today where EKG done and pt given metoprolol 25, EMS called and pt given 324mg ASA. In ER EKG with ST elevation anterior leads, troponin 7.9 and pt was taken to the bottle label inspector by Dr Jordan, Reported triple vessel disease and plan medical management and consider transfer in the morning. Denies fever/chills, N/V/D/C, YO, dizziness, syncope, vision changes, neck pain, extremity pain, jaw pain, orthopnea, palpitations, cough, sore throat , choking, otalgia, rhinorrhea, paresthesias, weakness, extremity weakness, extremity edema, rashes, urinary symptoms. Pt with hx asthma. Doesn't feel wheezing or cough and doesn't feel like asthma flare. Typically uses albuterol twice a month, in the past month has been using approx twice a week as he states was cleaning and dust seemed to flare asthma a bit. He has Advair to use BID but states has tapered over the past year and now uses approx once a week. Denies hx surgeries. Pt with hx CP 02/2016 seen in ER at that time. 2 negative troponin and negative stress echo at that time. Denies hx previous cardiac cath prior to today. Physical Exam (per Admitting): General Appearance: WD/WN, no apparent distress Head: normocephalic, atraumatic Eyes: normal inspection ENT: hearing grossly normal, pharynx normal Neck: supple, no JVD, no carotid bruits Respiratory/Chest: chest non-tender, lungs clear, normal breath sounds, no respiratory distress, no accessory muscle use Cardiovascular: regular rate, rhythm (rate 98), no edema, no murmur, normal peripheral pulses Abdomen/GI: normal bowel sounds, soft, + tenderness (epigastric, LLQ, RLQ without rebound or guarding ) Hospital Course STEMI presented with chest pain /heart burn symptom for past 2 days presented with STEMI EKG showed ST . ST elevations anteroseptal on EKG, initial troponin 7.3. Serial troponin 8.5. Code heart alert was called pt was taken emergently to cardiac label drier by Dr Jordan found to have diffuse multi vessel coronary artery disease with occluded LAD , incomplete collateral supply -ECHO: EF 55%, anteroseptal, apical septal hypokinesis. No valvular pathology. appreciate input form Cardiology pt will be transferred to [facility] DR Jordan spoke with CT surgery at [facility] pt is accepted by Dr Kristopher Crook will be transferred to [facility] today pt will continue on IV heparin gtt cont Beta chyna Lopressor 50 mg BID , statin , ACEI , Aspirin HTN on Lopressor /ACEI ASTHMA no exacerbation -continue Advair -Xopenex nebs prn DVT PROPHYLAXIS IV heparin DISPOSITION transfer to [facility] today for CABG Total time spent on discharge = 40 M INS This includes examination of the patient, discharge planning, medication reconciliation, and communication with other providers. Discharge Instructions DI: Myocardial v4 Discharge Instructions Date of Service Jul 24, 2017. Admission Reason for Admission: STEMI Discharge Discharge Diagnosis / Problem: STEMI /DIFFUSE THREE VESSEL CORONARY ARTERY DISEASE / Discharge Goals Goal(s): Decrease discomfort, Improve function, Increase independence, Improve disease control, Diagnostic testing Activity Recommendations Activity Limitations: as noted below ( TOLERATED ) . Instructions / Follow-Up Instructions / Follow-Up TRANSFER TO [facility] FOR CORONARY ARTERY BYPASS SURGERY ACCEPTING CARDIO THORACIC SURGEON DR CROOK Lifestyle Changes: * Maintain a healthy weight. Get help to lose any extra pounds. * Cut back on salt. * Limit canned, dried, packaged, and fast foods. * Don't add salt to your food. * Season foods with herbs instead of salt when you cook. * Break the smoking habit. Enroll in a stop-smoking program to improve your chances of success. * Limit fatty foods. * Ask your doctor about having your lipid levels checked regularly. * Build up your activity according to your doctor's recommendation. * Ask your doctor when it's okay to resume sexual activity. * Tell your doctor about any erectile dysfunction (ED) medication you are taking. Some ED medications are not safe if you take certain heart medications. * Try to manage stress. Follow Up: It is important for you to keep your follow up appointments with your medical provider. Current Hospital Diet Patient's current hospital diet: AHA Diet (Heart Healthy) Discharge Diet Recommended Diet: AHA Diet (Heart Healthy) Pending Studies Studies pending at discharge: no Laboratory Results Hemoglobin A1c Test 07/24/17 05:24 Range/Units Estimated Average Glucose 117 mg/dl Hemoglobin A1c 5.7 H 4.5-5.6 % Lipid Panel Test 07/24/17 05:24 Range/Units Triglycerides Level 142 0-150 mg/dl Cholesterol Level 168 0-200 mg/dl HDL Cholesterol 54 mg/dl Cholesterol/HDL Ratio 3.1 LDL Cholesterol, Calculated 86 mg/dl Medical Emergencies . Who to Call and When: Medical Emergencies: If at any time you feel your situation is an emergency, please call 911 immediately. Call 911 immediately or go to your nearest Emergency Room if you experience any of the following: Warning Signs and Symptoms of a Heart Attack * Chest pain that is not relieved by medication * Shortness of breath . Non-Emergent Contact Non-Emergency issues call your: Primary Care Provider . . "Provider Documentation" section prepared by Pham Albert. . AMI Core Measures Reason no ASA as I/P: Treatment provided - N/A Reason no ASA at D/C: Treatment provided - N/A Reason no statin as I/P: Treatment provided - N/A Reason no statin at D/C: Treatment provided - N/A VTE Core Measure Inpt VTE Proph given/why not?: Other Anticoagulation (IV HEPARIN )
--- NOTE | 2017-07-24 16:56 | ECHOCARDIOGRAM REPORT ---
*NOTICE TO RECEIVING REPUBLICAN AGENCY This information is strictly Confidential and protected under [place] law. [place] law prohibits you from making any further disclosure of this information unless further disclosure is expressly permitted by the written consent of the person to whom it pertains or is authorized by law. A general authorization for the release of medical or other information is not sufficient for this purpose. Hospital accepts no responsibility if the information is made available to any other person, INCLUDING THE PATIENT. Interpretation Summary * Name: TRE RANDALL Study Date: 07/24/2017 06:38 AM BP: 126/80 mmHg * [facility] HR: 91 * : 1960 (M/d/yyyy) Gender: Male Height: 70 in * Age: 56 yrs Ethnicity: [place] Weight: 228 lb * Ordering Physician: Kendall Mckinley * Referring Physician: Self, Referred * Performed By: Latrice Dorsey RCS * * Reason For Study: AMI * BSA: 2.2 m2 * Mildly reduced overall left ventricular systolic function. * Anteroseptal and apical hypokinesis to akinesis. * Borderline left atrial dilatation. * No significant valvular abnormalities noted. Procedure Details * A complete two-dimensional transthoracic echocardiogram was performed (2D, M-mode, Doppler and color flow Doppler). Left Ventricle * The left ventricle is normal in size. * There is no thrombus. * There is normal left ventricular wall thickness. * Ejection Fraction = 45-50%. * Left ventricular systolic function is mildly reduced. * Mid septal and anteroseptal hypokinesis. Mid to distal septal hypokinesis to akinesis. Apical septal akinesis. Anteroapical hypokinesis. Right Ventricle * The right ventricle is normal in size and function. Atria * The left atrium is borderline dilated. * Right atrial size is normal. * There is no evidence of atrial septal defect, but resolution does not allow assessment for a patent foramen ovale. Mitral Valve * The mitral valve is normal. * There is no mitral valve stenosis. * There is no mitral regurgitation noted. Tricuspid Valve * The tricuspid valve is normal. * There is no tricuspid stenosis. * No tricuspid regurgitation. Aortic Valve * The aortic valve is not well visualized. * The aortic valve is trileaflet. * The aortic valve opens well. * Aortic stenosis is absent. * No aortic regurgitation is present. Pulmonic Valve * The pulmonary valve is inadequately visualized, but the Doppler data is adequate for interpretation. * There is no pulmonic valvular stenosis. * There is no pulmonic valvular regurgitation. Great Vessels * The aortic root is normal size. * Normal inferior vena cava diameter and respiratory variation suggests normal central venous pressure. MMode 2D Measurements and Calculations IVSd 1.0 cm IVSs 1.2 cm LVIDd 3.5 cm LVIDs 2.2 cm LVPWd 1.0 cm LVPWs 1.2 cm IVS/LVPW 0.98 FS 37.9 % EDV(Teich) 50.8 ml ESV(Teich) 15.7 ml EF(Teich) 69.1 % EDV(cubed) 42.8 ml ESV(cubed) 10.3 ml EF(cubed) 76.0 % % IVS thick 21.6 % % LVPW thick 20.9 % LV mass(C)d 106.1 grams LV mass(C)dI 48.1 grams/m\S\2 LV mass(C)s 75.3 grams LV mass(C)sI 34.1 grams/m\S\2 SV(Teich) 35.1 ml SI(Teich) 15.9 ml/m\S\2 SV(cubed) 32.6 ml SI(cubed) 14.8 ml/m\S\2 Ao root diam 3.3 cm Ao root area 8.5 cm\S\2 ACS 1.9 cm LA dimension 4.0 cm asc Aorta Diam 2.9 cm LA/Ao 1.2 EDV(MOD-sp4) 164.2 ml ESV(MOD-sp4) 78.3 ml EF(MOD-sp4) 52.3 % LVAd ap2 40.5 cm\S\2 LVLd ap2 10.3 cm EDV(MOD-sp2) 129.0 ml EDV(sp2-el) 134.7 ml LVAs ap2 26.9 cm\S\2 LVLs ap2 9.0 cm ESV(MOD-sp2) 66.2 ml ESV(sp2-el) 67.9 ml EF(MOD-sp2) 48.7 % EF(sp2-el) 49.5 % SV(MOD-sp4) 85.9 ml SI(MOD-sp4) 38.9 ml/m\S\2 SV(MOD-sp2) 62.9 ml SI(MOD-sp2) 28.5 ml/m\S\2 SV(sp2-el) 66.7 ml SI(sp2-el) 30.2 ml/m\S\2 Doppler Measurements and Calculations MV E max sonja 70.2 cm/sec MV A max sonja 66.8 cm/sec MV E/A 1.1 MV P1/2t max sonja 74.4 cm/sec MV P1/2t 89.5 msec MVA(P1/2t) 2.5 cm\S\2 MV dec slope 243.3 cm/sec\S\2 MV dec time 0.27 sec Ao V2 max 125.6 cm/sec Ao max PG 6.3 mmHg Ao max PG (full) 0.05 mmHg LV V1 max PG 6.3 mmHg LV V1 max 125.2 cm/sec PA V2 max 105.3 cm/sec PA max PG 4.4 mmHg
== END 2017-07-24 18:24 | disposition short-term general hospital (02) | DRG 281 ==
LOC: EDBD 16:43 → C.EDC 16:44 → C.MSICU 19:09
PROVIDERS: ADMIT Internal Medicine; ATTEND Hospitalist
PROC: B211YZZ Fluoroscopy of Multiple Coronary Arteries using Other Contrast (ICD-10-PCS; principal; 2017-07-23 17:43)
PROC: 4A023N7 Measurement of Cardiac Sampling and Pressure, Left Heart, Percutaneous Approach (ICD-10-PCS; principal; 2017-07-23 17:43)
DX: I21.09 ST elevation (STEMI) myocardial infarction involving other coronary artery of anterior wall (principal); N17.9 Acute kidney failure, unspecified; I25.10 Atherosclerotic heart disease of native coronary artery without angina pectoris; I10 Essential (primary) hypertension; E87.6 Hypokalemia; E83.42 Hypomagnesemia; K59.00 Constipation, unspecified; J45.909 Unspecified asthma, uncomplicated; Z79.899 Other long term (current) drug therapy; Z82.49 Family history of ischemic heart disease and other diseases of the circulatory system